=== PATIENT | female | born 1980 | race Caucasian/White ===

== ENCOUNTER 2018-06-02 18:31 | Emergency (ER) | payer OTHER ==
[~2018-06-02] VITALS: Ht 162.6 cm; Wt 99.8 kg
== END 2018-06-02 23:17 | disposition home or self-care (01) ==
LOC: ER 18:31
DX: K57.90 Diverticulosis of intestine, part unspecified, without perforation or abscess without bleeding (principal); N83.292 Other ovarian cyst, left side; N28.1 Cyst of kidney, acquired